=== PATIENT | female | born 1985 | race Hispanic/Latino ===

== ENCOUNTER 2019-06-28 15:32 | Emergency (ER) | payer OTHER, SELFPAY ==
[2019-06-28] MEDS ORDERED: ASPIRIN 325MG EC TAB 325 MG TABLET.DR PO ONE (16:04)
[2019-06-28 16:09] LABS: BASOPHILS % (AUTO) 0.6 % (0.0-5.0); EOSINOPHILS % (AUTO) 0.8 % (0.0-8.0); HEMATOCRIT 35.8 % (36-48); LYMPHOCYTES % (AUTO) 24.5 % (21.0-51.0); MEAN CORPUSCULAR HEMOGLOBIN 29.8 pg (27.0-33.0); MEAN CORPUSCULAR HGB CONC 33.9 g/dL (32.0-36.0); MEAN CORPUSCULAR VOLUME 87.8 fL (79-99); MONOCYTES % (AUTO) 6.4 % (3.0-13.0); NEUTROPHILS % (AUTO) 67.7 % (40.0-77.0); PLATELET COUNT (AUTO) 335 K/uL (130-400); RED BLOOD CELL COUNT(AUTO) 4.08 MIL/uL (4.00-5.50); RED CELL DISTRIBUTION WIDTH 14.5 % (11.0-15.5); WHITE BLOOD COUNT (AUTO) 7.3 K/uL (4.8-10.8)
[2019-06-28 16:22] LABS: INR 0.95 (0.85-1.15); PARTIAL THROMBOPLASTIN TIME 24.9 SEC (26.3-35.5)
[2019-06-28 17:08] LABS: CREATININE 0.8 mg/dL (0.5-1.5); POTASSIUM 3.5 mmol/L (3.5-5.1)
[2019-06-28 17:13] LABS: BILIRUBIN,TOTAL 0.3 mg/dL (0.2-1.0); TOTAL PROTEIN, SERUM 7.5 g/dL (6.0-8.3)
[2019-06-28] MEDS ORDERED: KETOROLAC TROMETHAMINE 30MG/ML ONE (17:19)
[2019-06-28] MEDS ORDERED: SODIUM CHLORIDE 0.9% 1000ML 1,000 ML IV ONE (17:20)
[2019-06-28] MEDS ORDERED: DiphenhydrAMINE HCL 50 MG/ML VIAL ONE (17:20)
== END 2019-06-28 21:45 | disposition home or self-care (01) ==
LOC: EDH 15:32
DX: F41.1 Generalized anxiety disorder (principal); R07.89 Other chest pain
CPT/HCPCS: 36415; 71045; 80053; 81025; 82550; 84484 ×2; 85025; 85610; 85730; 93005 ×2; 96374; 96375; 99285; J1200; J1885; J7030

== ENCOUNTER 2019-11-24 00:11 | Emergency (ER) | payer SELFPAY, OTHER ==
[2019-11-24 00:58] LABS: BASOPHILS % (AUTO) 0.5 % (0.0-5.0); HEMATOCRIT 37.2 % (36-48); LYMPHOCYTES % (AUTO) 32.1 % (21.0-51.0); MEAN CORPUSCULAR HEMOGLOBIN 28.2 pg (27.0-33.0); MEAN CORPUSCULAR HGB CONC 32.3 g/dL (32.0-36.0); MEAN CORPUSCULAR VOLUME 87.5 fL (79-99); MONOCYTES % (AUTO) 6.6 % (3.0-13.0); NEUTROPHILS % (AUTO) 58.6 % (40.0-77.0); PLATELET COUNT (AUTO) 400 K/uL (130-400); RED BLOOD CELL COUNT(AUTO) 4.25 MIL/uL (4.00-5.50); RED CELL DISTRIBUTION WIDTH 13.5 % (11.0-15.5); WHITE BLOOD COUNT (AUTO) 6.5 K/uL (4.8-10.8)
[2019-11-24 00:59] LABS: APPEARANCE,URINE Clear (CLEAR); BILIRUBIN,URINE Negative (NEGATIVE); COLOR,URINE Yellow (YELLOW); GLUCOSE, URINE (UA) Negative (NEGATIVE); KETONES,URINE Negative (NEGATIVE); LEUKOCYTE ESTERASE ,URINE Negative (NEGATIVE); NITRATE,URINE Negative (NEGATIVE); OCCULT BLOOD,URINE Negative (NEGATIVE); PROTEIN,URINE Negative (NEGATIVE); UROBILINOGEN,URINE 0.2 mg/dL (0.2-1.0)
[2019-11-24 01:08] LABS: HCG,QUAL RESULT NEGATIVE (NEGATIVE)
[2019-11-24 01:12] LABS: CREATININE 0.8 mg/dL (0.5-1.5); POTASSIUM 3.7 mmol/L (3.5-5.1)
[2019-11-24 01:17] LABS: BILIRUBIN,DIRECT 0.1 mg/dL (0.0-0.3); BILIRUBIN,TOTAL 0.4 mg/dL (0.2-1.0); TOTAL PROTEIN, SERUM 8.1 g/dL (6.0-8.3)
[2019-11-24 01:49] LABS: AMPHET/METH SCREEN,URINE NEGATIVE (NEGATIVE); BARBITURATE SCREEN, URINE NEGATIVE (NEGATIVE); BENZODIAZEPINES SCREEN,URINE NEGATIVE (NEGATIVE); CANNABINOID SCREEN,URINE NEGATIVE (NEGATIVE); COCAINE SCREEN,URINE NEGATIVE (NEGATIVE); OPIATE SCREEN,URINE NEGATIVE (NEGATIVE); PHENCYCLIDINE SCREEN,URINE NEGATIVE (NEGATIVE)
== END 2019-11-24 02:48 | disposition home or self-care (01) ==
LOC: EDH 00:11
DX: N83.201 Unspecified ovarian cyst, right side (principal)
CPT/HCPCS: 36415; 76856; 80048; 80076; 80305; 81003; 81025; 82550; 83690; 85025

== ENCOUNTER 2024-11-10 12:32 | Emergency (ER) | payer SELFPAY ==
[~2024-11-10] VITALS: Ht 162.6 cm; Wt 86.2 kg
[2024-11-10 12:36] VITALS: BP 142/108; PULSE 91; RESP 16; TEMP 98.1
--- NOTE | 2024-11-10 12:45 | ERN ---
ED Note History of Present Illness Stated Complaint: COLD,CLAMY,DIZZY Chief Complaint: Anxiety/Panic Attack Time Seen by MD: 12:41 Dictation: PATIENT IS A 39-YEAR-OLD DIABETIC FEMALE HERE WITH COMPLAINTS OF FEELING ANXIOUS, WEAK WITH A HEADACHE FOR SEVERAL DAYS. SHE STATES ADDITIONALLY HER VISION HAS BEEN CHANGING OVER THE LAST SEVERAL MONTHS. SHE DENIES ANY CHEST PAIN BACK PAIN SOB. STATES SHE WAS DIAGNOSED WITH HYPERTENSION AND DIABETES LAST WEEK BY HER DOCTOR AT [facility], WAS PRESCRIBED METFORMIN AND OTHER MEDICATIONS AND STATES I DID NOT START THEM YET. SHE IS NOW HERE FOR A 2ND OPINION AND FOLLOW UP. Allergies: Coded Allergies: No Known Drug Allergies (Unverified Allergy, Unknown, 11/24/19) Past Medical History Past Medical History: Diabetes-Type II Surgical History: None History: Not Applicable RN Note Reviewed/Agreed w/PFSH: Yes Review of System Dictation CONSTITUTIONAL: NEGATIVE EXCEPT FOR HPI WEAKNESS, BLURRED VISION HEAD/FACE: NEGATIVE EXCEPT FOR HPI EENT: NEGATIVE EXCEPT FOR HPI RESPIRATORY: NEGATIVE EXCEPT FOR HPI GASTROINTESTINAL/ABDOMINAL: NEGATIVE EXCEPT FOR HPI GENITOURINARY: NEGATIVE EXCEPT FOR HPI MUSCULOSKELETAL: NEGATIVE EXCEPT FOR HPI INTEGUMENTARY: NEGATIVE EXCEPT FOR HPI NEUROLOGICAL/PSYCH: NEGATIVE EXCEPT FOR HPI FRONTAL HEADACHE HEMATOLOGIC/LYMPHATIC: NEGATIVE EXCEPT FOR HPI ALL SYSTEMS NEGATIVE, EXCEPT NOTED ABOVE. 13 POINT REVIEW OF SYSTEMS ASSESSED AND ALL NEGATIVE EXCEPT FOR ABOVE. Initial Vital Sign VS Vital Signs Date Time Temp Pulse Resp B/P (MAP) Pulse Ox O2 Delivery O2 Flow Rate FiO2 11/10/24 12:36 98.1 91 16 142/108 97 Room Air Physical Exam Dictation VITAL SIGNS REVIEWED GENERAL APPEARANCE: ALERT, ORIENTED X 3, NO ACUTE DISTRESS, WELL DEVELOPED, NOURISHED. HEAD AND FACE: NON-TRAUMATIC. EYES: PERRL, PINK CONJUNCTIVAS, EYELID NO TRAUMA, ANTERIOR CHAMBER WITH ARCUS SENILIS. PATIENT WEARING CORRECTIVE LENSES AT TIME OF EXAM EARS: PINNAS INTACT AND NO SIGNS OF TRAUMA OR ERYTHEMA EAR CANALS CLEAR AND NO DISCHARGE TM NO ERYTHEMA NOSE: NO DISCHARGE, NO BLEEDING. OROPHARYNX: MOUTH NORMAL, TONGUE PINK, PHARYNX CLEAR,NO ERYTHEMA, TONSILS NO EXUDATES, NO ABSCESSES NOTED, MUCOUS MEMBRANE MOIST NECK: SUPPLE, NON-TENDER, NO THYROMEGALY, NO MASSES, NO JVD, NO BRUITS BREAST:DEFERRED CHEST:NO TENDERNESS, NO CREPITUS, NO PARADOXICAL MOVEMENT, NO RETRACTIONS LUNGS:CLEAR, WELL-VENTILATED, SYMMETRIC, NO RALES, NO WHEEZING, NO RHONCHI, NO STRIDOR, GOOD BREATH SOUNDS BILATERALLY HEART: REGULAR RATE, REGULAR RHYTHM, NO MURMUR, NO GALLOPS VASCULAR: NO PERIPHERAL EDEMA, ABDOMEN: SOFT, POSITIVE BOWEL SOUNDS, NONDISTENDED, NO GUARDING, NONTENDER, NO REBOUND, NO MASSES NO HEPATOMEGALY, NO SPLENOMEGALY, NO SAENZ'S SIGN, NO HERNIAS. RECTAL: DEFERRED GENITAL: DEFERRED NEUROLOGICAL: NORMAL SPEECH, MOTOR FUNCTION INTACT, SENSORY FUNCTION INTACT MUSCULOSKELETAL: NECK NONTENDER, FULL RANGE OF MOTION, BACK NONTENDER, FULL RANGE OF MOTION, EXTREMITIES: NONTENDER, FULL RANGE OF MOTION SKIN: COLOR PINK, DRY, NO TURGOR, NO RASH, NO LACERATIONS, NO ABRASIONS, NO CONTUSIONS. LYMPHATIC: DEFERRED Results (Laboratory/Radiology) Labs Reviewed?: Yes ED Course ED Course Orders Procedure Category Date Status Time Acetaminophen 500mg PHA 11/10/24 Complete Tab (Tylenol 500mg T 13:00 Visual Acuity Test CPOE 11/10/24 Transmitted (Er) 12:45 Current Medications Medications (Trade) Dose Ordered Sig/Sylvie Route PRN Reason Start Time Stop Time Status Last Admin Dose Admin Acetaminophen (TYLenol 500MG TAB) 1,000 mg ONCE ONCE PO 11/10/24 13:00 11/10/24 12:51 DC Vital Signs Date Time Temp Pulse Resp B/P (MAP) Pulse Ox O2 Delivery O2 Flow Rate FiO2 11/10/24 12:36 98.1 91 16 142/108 97 Room Air Medical Decision Making [facility] 1250/PATIENT TOLD REGISTRATION PERSONNEL THAT SHE WAS GOING TO LEAVE THE EMERGENCY ROOM AFTER THE TRIAGE. SHE TOLD HIM SHE WAS FEELING BETTER AND WOULD FOLLOW UP WITH HER PRIMARY CARE DOCTOR. SHE DID NOT SIGN OUT AGAINST MEDICAL ADVICE AND HE DX & DISP Disposition: AMA Departure Impression: Primary Impression: Anxiety about health Additional Impression: Medically noncompliant Condition: Stable Referrals: SELF,REFERRAL (PCP) I have reviewed the case, and I agree with, Diagnosis and Plan IRENA MENDEZ ABSTRACT CHECKER Nov 10, 2024 12:45 JOB WEAVER DO Nov 10, 2024 14:56
[2024-11-10] MEDS ORDERED: acetaMINOPHEN 500 MG TABLET PO ONE (13:00)
== END 2024-11-10 12:51 | disposition left against medical advice (07) ==
LOC: EDH 12:32
DX: F41.9 Anxiety disorder, unspecified (principal); E11.9 Type 2 diabetes mellitus without complications; Z91.199 Patient's noncompliance with other medical treatment and regimen due to unspecified reason
CPT/HCPCS: 99281

== ENCOUNTER 2024-11-11 19:32 | Emergency (ER) | payer SELFPAY ==
[~2024-11-11] VITALS: Ht 162.6 cm; Wt 86.2 kg
--- NOTE | 2024-11-11 19:44 | NUR ---
GLUCOSE IN TRIAGE 149. DR NG MADE AWARE AND REPORT GIVEN
--- NOTE | 2024-11-11 19:51 | ERN ---
General Chief Complaint: Hypoglycemia Stated Complaint: LOW BLOOD SUGAR, DIZZY Time Seen by MD: 19:33 Source: patient History of Present Illness Initial Comments This is a 39-year-old female coming in to be evaluated for low blood sugar. Patient states that she has been checking her sugar and in three separate occasions she has noticed her sugars in the 60s. She also states that she was recently diagnosed with diabetes and was started on metformin. She was not started him reforming yet and states he was more concerned because her sugar has been low in three separate locations. She does state that she suffers from anxiety and tension headaches and feels like this is impacting her more. Allergies: Coded Allergies: No Known Drug Allergies (Unverified Allergy, Unknown, 11/24/19) Past Medical History Past Medical History: Diabetes-Type II, High Cholesterol, Hypertension Past Surgical History: None Female( History) History: Not Applicable ROS Dictation CONSTITUTIONAL: No chills, no fever, no weakness, no diaphoresis, no malaise. HEAD/FACE: No signs of trauma. EENT: No eye pain, no blurred vision, no tearing, no double vision, no ear pain, no ear discharge, no nose pain, no nasal congestion, no throat pain, no throat swelling, no mouth pain. RESPIRATORY: No cough, no orthopnea, no SOB, no stridor, no wheezing. CARDIOVASCULAR: No chest pain, no edema, no palpitations, no syncope. GASTROINTESTINAL/ABDOMINAL: No abdominal pain, no constipation, no diarrhea, no nausea, no vomiting. GENITOURINARY: No abnormal discharge, no dysuria, no frequent urination, no hematuria. No complaints of pain in the genitals. MUSCULOSKELETAL: No back pain, no gout, no joint pain, no joint swelling, no muscle pain, no muscle stiffness, no neck pain. INTEGUMENTARY: No change in color, no change in hair/nails, no dryness, no lesion, no lumps, no rash. NEUROLOGICAL/PSYCH: No anxiety, not depressed, no emotional problem, no headache, no numbness, no pre-existing deficit, no history of seizures, no tremors, no weakness. HEMATOLOGIC/LYMPHATIC: Not anemic, no history of blood clots, no apparent bleeding, no bruising, glands not swollen. All Systems Negative, Except as Noted. Physical Exam Physical Exam Dictation VITAL SIGNS: Reviewed. GENERAL APPEARANCE: Alert, oriented x3, no acute distress, obese. HEAD AND FACE: Non-traumatic. EYES: PERRL, pink conjunctivas, eyelid no trauma, anterior chamber clear. EARS: Pinnas intact and no signs of trauma or erythema. Ear canals clear and no discharge. TMs no erythema. NOSE: No discharge, no bleeding. OROPHARYNX: Mouth normal, teeth no caries, tongue pink. Pharynx clear, no erythema. Tonsils no exudates, no abscesses noted. Mucous membrane moist. NECK: Supple, non-tender, no thyromegaly, no masses, no JVD, no bruits. BREAST: Deferred. CHEST: No tenderness, no crepitus, no paradoxical movement, no retractions. LUNGS: Clear, well-ventilated, symmetric, no rales, no wheezing, no rhonchi, no stridor, good breath sounds bilaterally. HEART: Regular rate, regular rhythm, no murmur, no gallops. VASCULAR: No peripheral edema. ABDOMEN: Soft, positive bowel sounds, nondistended, no guarding, nontender, no rebound, no masses no hepatomegaly, no splenomegaly, no Magaña's sign, no hernias. RECTAL: Deferred. GENITAL: Deferred. NEUROLOGICAL: Normal speech, gross motor function intact, gross sensory function intact. MUSCULOSKELETAL: Neck nontender, full range of motion, back nontender, full range of motion. EXTREMITIES: Nontender, full range of motion. SKIN: Color pink, dry, no turgor, no rash, no lacerations, no abrasions, no contusions. LYMPHATICS: Deferred. Results Laboratory and Microbiology Lab and Micro Result Laboratory Tests Test 11/11/24 19:39 Whole Blood Glucose 149 MG/DL (70-110) H Labs Reviewed?: Yes MDM MDM: Differential diagnosis: Wellness exam, hypoglycemic event, Patient is a 39-year-old female coming in to be evaluated for hypoglycemic event in three separate occasions. Patient states that she was recently diagnosed with diabetes and was started on metformin she has a it was take her metformin. States that she was concerned because today she also noticed that her blood sugar was in the 50s felt weak and decided to come in for further evaluation. In triage patient was evaluated in her glucose was found to be in 149. I counseled her on blood glucose levels and normal range what it should be I also counseled her in to possibly replacing her glucometer. Patient states she will switch glucometer hours and will follow up with the PCP accordingly. ED Course Orders Procedure Category Date Status Time Bedside Glucose CPOE 11/11/24 Transmitted Fingerstick 19:45 Vital Signs Date Time Temp Pulse Resp B/P (MAP) Pulse Ox O2 Delivery O2 Flow Rate FiO2 11/11/24 19:33 97.5 82 20 132/106 100 Room Air DX & DISP Disposition: Discharge Departure Impression: Primary Impression: Anxiety about health Additional Impression: Diabetes mellitus Condition: Stable Additional Instructions: FOLLOW-UP WITH PRIMARY CARE PROVIDER IN 1 TO 2 DAYS. TAKE MEDICATIONS DIRECTED HERE IN THE EMERGENCY ROOM. OKAY TO CONTINUE HOME MEDICATIONS UNLESS OTHERWISE DISCUSSED DURING YOUR VISIT IN THE EMERGENCY ROOM TODAY. RETURN TO YOUR NEAREST EMERGENCY ROOM IF SYMPTOMS WORSEN OR IF THERE IS NO IMPROVEMENT. CALL 911 IF YOU NEED IMMEDIATE ASSISTANCE. TAKE TYLENOL [id number] NEEDED AND IF NO CONTRAINDICATIONS ARE PRESENT. INCREASE ORAL HYDRATION. A WOUND CULTURE OR URINE CULTURE WAS ORDERED HERE IN THE EMERGENCY ROOM DEPARTMENT PLEASE FOLLOW-UP WITH PRIMARY CARE PROVIDER AND ADVISE THEM TO GET REPEAT PORTS FROM OUR FACILITY. IF YOU HAD ANY AIXA WRAP/SPLINTS THAT WERE APPLIED HERE, PLEASE DO NOT REMOVE THEM UNTIL YOU SEE YOUR PRIMARY CARE OR SPECIALTY. Referrals: Referrals: SELF,REFERRAL (PCP) KEERTHI RUTHERFORD MD Time of Disposition: 19:50 KRISTAL NG MD Nov 11, 2024 19:51
[2024-11-11 21:00] VITALS: BP 130/95; PULSE 20; RESP 20; TEMP 97.6; O2SAT 97
== END 2024-11-11 21:31 | disposition home or self-care (01) ==
LOC: EDH 19:32
DX: F41.9 Anxiety disorder, unspecified (principal); E11.9 Type 2 diabetes mellitus without complications; E78.00 Pure hypercholesterolemia, unspecified; I10 Essential (primary) hypertension
CPT/HCPCS: 82948; 99282

== ENCOUNTER → 2025-07-23 | Emergency (ER) | payer BC ==
[~2025-07-23] VITALS: Ht 162.6 cm; Wt 83.9 kg
[2025-07-23] MEDS: 0.9%NACL 1000ML 1,000 ML IV ONE (10:42)
[2025-07-23] MEDS: PROCHLORPERAZINE 10MG/2ML INJ IV ONE (10:42)
[2025-07-23 10:44] LABS: IMMATURE GRANULOCYTE ABSOLUTE 0.05 K/uL (0-1); NUCLEATED RED BLOOD CELLS 0.0 % (0.0-0.19); PLATELET COUNT (AUTO) 426 K/uL (130-400); RED BLOOD CELL COUNT(AUTO) 4.48 MIL/uL (4.00-5.50); RED CELL DISTRIBUTION WIDTH 13.7 % (11.0-15.5); WHITE BLOOD COUNT (AUTO) 8.5 K/uL (4.8-10.8)
[2025-07-23 10:53] LABS: CREATININE 0.7 mg/dL (0.5-1.0); GLOMERULAR FILTR. RATE CALC 111.0 mL/min (>90); GLUCOSE,RANDOM 146.0 mg/dL (70-105); SODIUM SERUM 136.0 mmol/L (136-145); UREA NITROGEN, BLOOD 9.0 mg/dL (7-18)
--- NOTE | 2025-07-23 11:11 | NUR ---
PT GOING TO CT
--- NOTE | 2025-07-23 12:12 | ERN ---
General Chief Complaint: Headache Stated Complaint: HEADACHE Time Seen by MD: 10:26 Source: patient History of Present Illness Initial Comments Patient is a 40-year-old female coming in to be evaluated for headache. Patient is a pain is localized to the left eye and left head area. States that the pain in his on the frontal and maxillary areas of her face. Allergies: Coded Allergies: No Known Drug Allergies (Unverified Allergy, Unknown, 11/24/19) Past Medical History Past Medical History: Diabetes-Type II, High Cholesterol, Hypertension, Liver Disease Past Surgical History: None Female( History) History: Not Applicable ROS Dictation CONSTITUTIONAL: No chills, no fever, no weakness, no diaphoresis, no malaise. HEAD/FACE: No signs of trauma. EENT: No eye pain, no blurred vision, no tearing, no double vision, no ear pain, no ear discharge, no nose pain, no nasal congestion, no throat pain, no throat swelling, no mouth pain. RESPIRATORY: No cough, no orthopnea, no SOB, no stridor, no wheezing. CARDIOVASCULAR: No chest pain, no edema, no palpitations, no syncope. GASTROINTESTINAL/ABDOMINAL: No abdominal pain, no constipation, no diarrhea, no nausea, no vomiting. GENITOURINARY: No abnormal discharge, no dysuria, no frequent urination, no hematuria. No complaints of pain in the genitals. MUSCULOSKELETAL: No back pain, no gout, no joint pain, no joint swelling, no muscle pain, no muscle stiffness, no neck pain. INTEGUMENTARY: No change in color, no change in hair/nails, no dryness, no lesion, no lumps, no rash. NEUROLOGICAL/PSYCH: No anxiety, not depressed, no emotional problem, no heada nery, no numbness, no pre-existing deficit, no history of seizures, no tremors, no weakness. HEMATOLOGIC/LYMPHATIC: Not anemic, no history of blood clots, no apparent bleeding, no bruising, glands not swollen. All Systems Negative, Except as Noted. Physical Exam Physical Exam Dictation VITAL SIGNS: Reviewed. GENERAL APPEARANCE: Alert, oriented x3, no acute distress, obese. HEAD AND FACE: Non-traumatic. EYES: PERRL, pink conjunctivas, eyelid no trauma, anterior chamber clear. EARS: Pinnas intact and no signs of trauma or erythema. Ear canals clear and no discharge. TMs no erythema. NOSE: No discharge, no bleeding. OROPHARYNX: Mouth normal, teeth no caries, tongue pink. Pharynx clear, no erythema. Tonsils no exudates, no abscesses noted. Mucous membrane moist. NECK: Supple, non-tender, no thyromegaly, no masses, no JVD, no bruits. BREAST: Deferred. CHEST: No tenderness, no crepitus, no paradoxical movement, no retractions. LUNGS: Clear, well-ventilated, symmetric, no rales, no wheezing, no rhonchi, no stridor, good breath sounds bilaterally. HEART: Regular rate, regular rhythm, no murmur, no gallops. VASCULAR: No peripheral edema. ABDOMEN: Soft, positive bowel sounds, nondistended, no guarding, nontender, no rebound, no masses no hepatomegaly, no splenomegaly, no Magaña's sign, no hernias. RECTAL: Deferred. GENITAL: Deferred. NEUROLOGICAL: Normal speech, gross motor function intact, gross sensory function intact. MUSCULOSKELETAL: Neck nontender, full range of motion, back nontender, full range of motion. EXTREMITIES: Nontender, full range of motion. SKIN: Color pink, dry, no turgor, no rash, no lacerations, no abrasions, no contusions. LYMPHATICS: Deferred. Results Laboratory and Microbiology Lab and Micro Result Laboratory Tests Test 07/23/25 10:40 07/23/25 12:11 White Blood Count 8.5 K/uL (4.8-10.8) Red Blood Count 4.48 MIL/uL (4.00-5.50) Hemoglobin 13.6 g/dL (12.0-16.0) Hematocrit 41.5 % (36-48) Mean Corpuscular Volume 92.6 fL (79-99) Mean Corpuscular Hemoglobin 30.4 pg (27.0-33.0) Mean Corpuscular Hemoglobin Concent 32.8 g/dL (32.0-36.0) Red Cell Distribution Width 13.7 % (11.0-15.5) Platelet Count 426 K/uL (130-400) H Mean Platelet Volume 10.2 fL (7.5-10.5) Immature Granulocyte % (Auto) 0.6 % (0-1) Neutrophils (%) (Auto) 65.2 % (40.0-77.0) Lymphocytes (%) (Auto) 27.1 % (21.0-51.0) Monocytes (%) (Auto) 5.0 % (3.0-13.0) Eosinophils (%) (Auto) 1.6 % (0.0-8.0) Basophils (%) (Auto) 0.5 % (0.0-5.0) Neutrophils # (Auto) 5.6 K/uL (1.8-7.7) Lymphocytes # (Auto) 2.3 K/uL (1.0-4.8) Monocytes # (Auto) 0.4 K/uL (0.1-1.0) Eosinophils # (Auto) 0.14 K/uL (0.00-0.70) Basophils # (Auto) 0.04 K/uL (0.00-0.20) Absolute Immature Granulocyte (auto 0.05 K/uL (0-1) Nucleated Red Blood Cells 0.0 % (0.0-0.19) Sodium Level 136 mmol/L (136-145) Potassium Level 3.6 mmol/L (3.5-5.1) Chloride Level 99 mmol/L (101-111) L Carbon Dioxide Level 29 mmol/L (21-32) Blood Urea Nitrogen 9 mg/dL (7-18) Creatinine 0.7 mg/dL (0.5-1.0) Glomerular Filtration Rate Calc 111 mL/min (>90) Random Glucose 146 mg/dL (70-105) H Total Calcium 8.6 mg/dL (8.5-10.1) Urine Color LIGHT-YELLOW (YELLOW) Urine Appearance CLEAR (CLEAR) Urine pH 7.0 (5.0-8.0) Urine Specific [place] 1.007 (1.001-1.031) Urine Protein NEGATIVE mg/dL (NEGATIVE) Urine Glucose (UA) NEGATIVE mg/dL (NEGATIVE) Urine Ketones NEGATIVE mg/dL (NEGATIVE) Urine Occult Blood NEGATIVE (NEGATIVE) Urine Nitrate NEGATIVE (NEGATIVE) Urine Bilirubin NEGATIVE mg/dL (NEGATIVE) Urine Urobilinogen 0.2 mg/dL (0.2-1.0) Urine Leukocyte Esterase NEGATIVE Elsi/uL Urine RBC 0-1 /HPF (0-1) Urine WBC 0-1 /HPF (0-1) Urine Squamous Epithelial Cells RARE /HPF (0-2) Urine Bacteria RARE /HPF (None Seen) Labs Reviewed?: Yes EKG/XRAY/US/CT/MRI CT Scan Comment [facility] [address] [place] [address] IMAGING REPORT Signed PATIENT: MARIA LUISA GRACE MR#: [id number] : 1985 SEX: F AGE: 40 LOCATION: [facility] ORDER 1240 STATUS: REG ER REPORT#: [id number] SERVICE [address]: [address] orbit ORDERING PHYSICIAN: KRISTAL NG MD PROCEDURE: HEAD WO - CT HEAD/BRAIN W/O CONTRAST EXAM: CT Head Without IV contrast. CLINICAL HISTORY: abnormal ct orbit TECHNIQUE: Axial computed tomography images of the head/brain without intravenous contrast. COMPARISON: None provided. FINDINGS: There is a partially calcified and cystic mass emanating from the sellar into the suprasellar region with overall dimensions of approximately 4.7 x 2.3 x 2.5 cm. Differential considerations include a craniopharyngioma. Recommend contrast-enhanced MR imaging for further characterization. Elsewhere there is no intracranial mass appreciated. The sargent-white matter differentiation is preserved without evidence of infarct. There is no intracranial hemorrhage. Ventricles are narrowed by the mass; however remain patent. Basal cisterns are patent. There is no herniation. Orbits and globes are within normal limits. Paranasal sinuses and mastoid air cells are well-pneumatized. The calvarium is intact. IMPRESSION: 1. Partially calcified and cystic sellar/suprasellar mass measuring 4.7 x 2.3 x 2.5 cm, possibly representing a craniopharyngioma. Mass effect on ventricles without obstruction. 2. No acute intracranial findings. 3. Recommend contrast-enhanced MR imaging for further characterization. /[place] DICTATED BY: REG CHUA Jr., MD DATE: 07/23/251452 ELECTRONICALLY SIGNED BY: REG CHUA Jr., MD DATE: 07/23/251452 [facility] MDM: Differential diagnosis: Craniopharyngioma, diplopia, Rationale: Tests considered and ordered secondary to shared decision making include: Previous outside records reviewed: Old ER visits. Risk of complication and/or morbidity or mortality of patient management: None Medications-Per medication reconciliation Need for hospitalization: Patient does not meet criteria for hospitalization. Need for emergency major/minor surgery: No There are no social concerns with this patient. Prescription drug management Prescriptions will include symptomatic care Patient's prior external medical records from other ER visits were reviewed by me as indicated. Prior testing and results from previous visits were reviewed. Prior tests were taken into account with medical decision making and resource utilization, independent historian/historians were used to obtain complete medical history. I independently interpreted the test that were performed, results were reviewed by me and considered findings on radiology if ordered. Medical management and examination interpretation discussions were had by me with other qualified healthcare professionals as indicated for the patient's care. Patient will be transferred to [facility] physician. ED Course Orders Procedure Category Date Status Time Cbc With Differential LAB 07/23/25 Complete 10:29 Basic Metabolic Panel LAB 07/23/25 Complete 10:29 Urinalysis LAB 07/23/25 Complete W/Microscopic 10:29 Ct Orb/Osiris/Ear W/O CT 07/23/25 Resulted Contrast 10:29 0.9%Nacl 1000ml (Ns PHA 07/23/25 Complete 1000ml) 10:30 Prochlorperazine PHA 07/23/25 Complete 10mg/2ml Inj 10:30 Diphenhydramine Hcl PHA 07/23/25 Complete (Benadryl Inj) 10:30 Ct Head/Brain W/O CT 07/23/25 Resulted Contrast 12:39 Current Medications Medications (Trade) Dose Ordered Sig/Sylvie Route PRN Reason Start Time Stop Time Status Last Admin Dose Admin Diphenhydramine HCl (BENAdryl INJ) 25 mg ONCE ONCE IV 07/23/25 10:30 07/23/25 10:33 DC 07/23/25 10:48 Prochlorperazine Edisylate (Compazine 10mg/ 2ml Inj) 10 mg ONCE ONCE IV 07/23/25 10:30 07/23/25 10:33 DC 07/23/25 10:42 Sodium Chloride 1,000 ml @ 0 mls/hr ONCE ONCE IV 07/23/25 10:30 07/23/25 10:33 DC 07/23/25 10:42 Vital Signs Date Time Temp Pulse Resp B/P (MAP) Pulse Ox O2 Delivery O2 Flow Rate FiO2 07/23/25 12:13 98.4 76 12 152/107 100 Room Air* 0 21 07/23/25 10:32 98.4 81 16 142/96 98 Room Air* 0 21 07/23/25 10:24 98.4 81 16 165/114 98 Room Air 0 DX & DISP Disposition: Transfer Departure Impression: 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
[2025-07-23 12:26] LABS: APPEARANCE,URINE CLEAR (CLEAR); GLUCOSE, URINE (UA) NEGATIVE (NEGATIVE); LEUKOCYTE ESTERASE ,URINE NEGATIVE Leu/uL (NEGATIVE); NITRATE,URINE NEGATIVE (NEGATIVE); OCCULT BLOOD,URINE NEGATIVE (NEGATIVE); SQUAMOUS EPITHELIAL CELL,UR RARE /HPF (0-2)
--- NOTE | 2025-07-23 12:31 | HMCIMG ---
EXAM: CT Orbits Without IV contrast. CLINICAL HISTORY: left eye TECHNIQUE: Axial computed tomography images of the orbits without intravenous contrast. CONTRAST: None. COMPARISON: None provided. FINDINGS: Partially calcified structure within the suprasellar region is of unknown clinical significance, and if warranted clinically may be further characterized with dedicated CT imaging of the brain/sella. ORBITS: There is very mild left periorbital fat stranding that may reflect preseptal cellulitis if clinically warranted. The left orbit appears within normal limits. Left extraocular muscles and retro-orbital fat planes are maintained. No retrobulbar hematoma. No post-septal fat stranding or fluid. BONES: No acute fracture or aggressive appearing osseous lesion. No periosteal reaction. SINUSES: No sinus air-fluid level as visualized. SOFT TISSUES: No soft tissue gas. No radiopaque foreign body. IMPRESSION: 1. Mild left periorbital fat stranding, possibly reflecting preseptal cellulitis if clinically warranted. 2. Partially calcified structure within the suprasellar region is of unknown clinical significance, and if warranted clinically may be further characterized with dedicated CT imaging of the brain/sella. 3. No acute orbital or osseous abnormalities. /[place]
--- NOTE | 2025-07-23 13:53 | HMCIMG ---
EXAM: CT Head Without IV contrast. CLINICAL HISTORY: abnormal ct orbit TECHNIQUE: Axial computed tomography images of the head/brain without intravenous contrast. COMPARISON: None provided. FINDINGS: There is a partially calcified and cystic mass emanating from the sellar into the suprasellar region with overall dimensions of approximately 4.7 x 2.3 x 2.5 cm. Differential considerations include a craniopharyngioma. Recommend contrast-enhanced MR imaging for further characterization. Elsewhere there is no intracranial mass appreciated. The sargent-white matter differentiation is preserved without evidence of infarct. There is no intracranial hemorrhage. Ventricles are narrowed by the mass; however remain patent. Basal cisterns are patent. There is no herniation. Orbits and globes are within normal limits. Paranasal sinuses and mastoid air cells are well-pneumatized. The calvarium is intact. IMPRESSION: 1. Partially calcified and cystic sellar/suprasellar mass measuring 4.7 x 2.3 x 2.5 cm, possibly representing a craniopharyngioma. Mass effect on ventricles without obstruction. 2. No acute intracranial findings. 3. Recommend contrast-enhanced MR imaging for further characterization. /[place]
--- NOTE | 2025-07-23 17:06 | NUR ---
PT GIVES PERMISSON TO THE FOLLOWING PERSONS TO RECIEVE INFORMATINON: KENNETH GRACE (BROTHER) KRISTOFER CHILDERS (DAUGHTER)
[2025-07-23 17:58] VITALS: BP 165/98; PULSE 78; RESP 14; TEMP 98.3; O2SAT 97
--- NOTE | 2025-07-23 18:06 | NUR ---
REPORT GIVEN TO SHANIA FLOWERS AT [facility].
--- NOTE | 2025-07-23 19:17 | NUR ---
PT LEFT FACILITY AT 1916. TRANSFER DOCUMENTION COULD NOT BE COMPLETE DUE TO SYSTEM ERROR. Addendum: 07/23/25 at 1917 by JOAO PT GOT TRANSFERED TO MD MUSA.
== END ==
LOC: EDH 10:22
DX: D44.4 Neoplasm of uncertain behavior of craniopharyngeal duct (principal); H53.2 Diplopia; E11.9 Type 2 diabetes mellitus without complications; E78.00 Pure hypercholesterolemia, unspecified; I10 Essential (primary) hypertension
CPT/HCPCS: 99285; 70450; 96374; 96361; 96375; 80048; 85025; 81001; 36415; 70480; J1200; J7030; J0780